=== PATIENT | male | born 2000 | race Hispanic/Latino ===

== ENCOUNTER 2021-06-15 18:05 | Emergency (ER) | payer OTHER ==
[~2021-06-15] VITALS: Ht 175.3 cm; Wt 80.4 kg
[2021-06-15] MEDS ORDERED: NS 1,000 ML IV ONE (22:00)
[2021-06-15] MEDS ORDERED: KETOROLAC 30 MG/ML 1ML VIAL IV ONE (22:00)
[2021-06-15] MEDS ORDERED: ONDANSETRON 4MG/2ML VIAL IV ONE (22:00)
[2021-06-15 22:21] LABS: BASO # 0.1 10^3/uL (0.0-0.2); BASO % 0.5 % (0.0-1.0); EOS # 0.2 10^3/uL (0.0-0.5); EOS % 1.3 % (0.0-3.0); HEMATOCRIT 44.6 % (42.0-52.0); HEMOGLOBIN 15.6 g/dl (13.5-17.5); LYMPH % 16.7 % (24.0-44.0); MEAN CORPUSCULAR HEMOGLOBIN 30.1 pg (27.0-33.0); MEAN CORPUSCULAR VOLUME 85.9 fl (80.0-96.0); MONO % 8.2 % (2.0-8.0); NEUTROPHILS # 8.6 10^3/uL (1.5-8.5); PLATELET COUNT, AUTOMATED 261 10^3/uL (150-450); RED BLOOD COUNT 5.19 10^6/uL (4.30-6.10); WHITE BLOOD COUNT 11.7 10^3/uL (4.0-10.0)
[2021-06-15 22:53] LABS: ALBUMIN 3.9 GM/DL (3.2-5.2); ALT/SGPT 36 U/L (12-78); BILIRUBIN,DIRECT 0.1 MG/DL (0.0-0.2); BILIRUBIN,TOTAL 0.3 MG/DL (0.2-1.0); BLOOD UREA NITROGEN 13 MG/DL (7-18); CALCIUM LEVEL 9.1 MG/DL (8.5-10.1); CARBON DIOXIDE LEVEL 26 MEQ/L (21-32); CHLORIDE LEVEL 105 MEQ/L (98-107); CREATININE FOR GFR 0.75 MG/DL (0.70-1.30); GLUCOSE, FASTING 97 MG/DL (70-100); LIPASE 97 U/L (73-393); POTASSIUM SERUM 4.1 MEQ/L (3.5-5.1); SODIUM LEVEL 137 MEQ/L (136-145); TOTAL PROTEIN 7.7 GM/DL (6.4-8.2)
[2021-06-15] MEDS ORDERED: ISOVUE-370 76% 100ML VIAL As Ordered ONE (23:45)
[2021-06-16] MEDS ORDERED: UNRESOLVED CLARIFICATION ENTRY XX SCH (00:01)
[2021-06-16 01:36] VITALS: BP 143/70
== END 2021-06-16 01:38 | disposition home or self-care (01) ==
LOC: M ED 18:05
DX: R10.31 Right lower quadrant pain (principal); R11.0 Nausea
CPT/HCPCS: 74177; 80048; 80076; 83605; 83690; 85025; 87804; 96361; 96374; 96375; 99284; J1885; J2405; Q9967